=== PATIENT | female | born 1970 | race Hispanic/Latino ===

== ENCOUNTER 2020-04-14 09:58 | Observation (INO) | payer BC, OTHER ==
[2020-04-09 10:52] LABS: BASOPHILS # (AUTO) 0.1 (0.0-0.1); BASOPHILS % 1.2 % (0.0-1.0); EOSINOPHILS # (AUTO) 0.3 (0.0-0.4); EOSINOPHILS % 3.4 % (0.0-6.0); HEMATOCRIT 35.6 % (34.2-44.1); HEMOGLOBIN 11.4 g/dL (12.0-16.0); LYMPHOCYTES # (AUTO) 1.5 (1.0-3.2); LYMPHOCYTES % 18.2 % (18.0-39.1); MEAN CORPUSCULAR HEMOGLOBIN 27.1 pg (28-32); MEAN CORPUSCULAR VOLUME 84.6 fL (81-99); MONOCYTES # (AUTO) 0.7 (0.2-0.8); MONOCYTES % 8.9 % (4.4-11.3); NEUTROPHILS # (AUTO) 5.6 (2.1-6.9); NEUTROPHILS % 67.7 % (38.7-80.0); PLATELET COUNT 366 x10e3/uL (140-360); RED BLOOD COUNT 4.21 x10e6/uL (3.6-5.1); RED CELL DISTRIBUTION WIDTH 14.9 % (11.7-14.4)
[~2020-04-14] VITALS: Ht 165.1 cm; Wt 69.4 kg
[~2020-04-14 09:58] MED LIST: BIRTH CONTROL PO; IBUPROFEN400 MG PO; MOBIC7.5 MG PO; MONTELUKAST SOD10 MG PO; PANTOPRAZOLE SO40 MG PO; ROPIVACAINE 246.25 MG, EPINEPHRINE HCL 1:1000 1ML 0.5 MG, CLONIDINE HCL 0.08 MG, KETORO... INJ ONE
[2020-04-14] MEDS ORDERED: BACITRACIN 50,000 UNIT VIAL ONE (10:19)
[2020-04-14] MEDS ORDERED: SODIUM CHLORIDE 0.9% 500ML 500 ML ONE (10:20)
[2020-04-14] MEDS ORDERED: TRANEXAMIC ACID 1,000 MG/10 ML ML ONE (10:20)
[2020-04-14] MEDS ORDERED: VANCOMYCIN HCL 1,000 MG ONE (10:20)
[2020-04-14] MEDS ORDERED: CELECOXIB 200 MG CAP ONE (10:26)
[2020-04-14] MEDS ORDERED: DEXAMETHASONE SOD PHOS 10 MG/1 ML VIAL ONE (10:26)
[2020-04-14] MEDS ORDERED: CEFAZOLIN SOD 1 GM/NS 50ML 100 ML IV ONE (10:27)
[2020-04-14] MEDS ORDERED: GABAPENTIN 300 MG CAP ONE (10:27)
[2020-04-14] MEDS ORDERED: BUPIVACAINE 7.5MG/ML /DEXTROSE 82.5MG/ML 2 ML AMP INJ ONE (10:43)
[2020-04-14] MEDS ORDERED: DIPHENHYDRAMINE HCL INJ 50 MG/ML VIAL IV PRN (12:30)
[2020-04-14] MEDS ORDERED: ONDANSETRON HCL INJ 2MG/ML 2ML 2 MG/ML VIAL IV PRN (12:30)
[2020-04-14] MEDS ORDERED: KETOROLAC TROMETHAMINE 30 MG/ML VIAL IV PRN (12:30)
[2020-04-14] MEDS ORDERED: ACETAMINOPHEN 650 MG SUPP PR PRN (12:30)
[2020-04-14] MEDS: SODIUM CHLORIDE 0.9% 1000ML 1,000 ML IV SCH ×2 (12:30→22:30)
[2020-04-14] MEDS ORDERED: HYDROCODONE/APAP 7.5MG-325MG 1 EA TAB PO PRN (12:30)
[2020-04-14] MEDS ORDERED: DOCUSATE SODIUM 100 MG CAP PO PRN (12:30)
[2020-04-14] MEDS ORDERED: HYDROCODONE/APAP 5MG-325MG TAB PO PRN (12:30)
--- OUTSIDE RECORDS SUMMARY | 2020-04-14 13:06 | XMS REPORT ---
Author Author Karla Webb [facility] [place] eClinicalWorks Address Unknown Phone Unavailable Care Team Providers Care Makeup Editor Name Role Phone Michelle Webb Unavailable Encounters Encounter Location Date allergies [facility], [facility] March 19, 2014 [facility] 2016 Problems Problem Type Condition ICD-9 Code Onset Dates Condition Statu s Assessment Post Nasal Drip 784.91 Active Problem Other chronic allergic conjunctivitis H10.45 Active Problem Postnasal drip R09.82 Active Problem Other allergic rhinitis J30.89 Acti ve Problem Conjunctivitis-allergic 372.14 Acti ve Problem Post Nasal Drip 784.91 Active Problem Polyp of nasal cavity J33.0 Active Problem Allergic Rhinitis-Perennial 477.8 Active Medications Medication Code System Code Instructions Start Date End Date Status Dosage [facility] [address]-77 50 MCG/ACT Nasally Once a day Active 1 spray in each nostril Social History Social History Element Qualifiers Date Reported 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 . No Apr 19, 2016 Bedroom furniture: . Box spring mattress, Down pillows or comforter Apr 19, 2016 HVAC . Central air and heat Apr 19, 2016 Window coverings in bedroom . Unknown Apr 19, 2016 Home water damage? . No Apr 19, 2016 Age of your home: . 6-10 years Apr 19, 2016 Type of diane in bedroom . Carpet Apr 19, 2016 Hobbies . Watching T.V Apr 19, 2016 Increased allergy sx: animals? . No Apr 19 016 Secondary tobacco exposure? . No Apr 19, 2016 Pets: . dog(s), outside Apr 19, 2016 Are you HIV/Aids positive? . No Apr 19, 2016 Type of fan in bedroom . Ceiling fan or box fan Apr 19 6 Does alcohol cause allergy symptoms? . No Apr 19, 2016 Tobacco Use: . Are you a:: never smoker Apr 19 16 Do you use allergy dust mite protectors . No Apr 19, 2016 Summary Purpose eClinicalWorks Submission
--- OUTSIDE RECORDS SUMMARY | 2020-04-14 13:06 | XMS REPORT ---
Author Author Karla Webb [facility] eClinicalWorks Address Unknown Phone Unavailable Care Team Providers Care Tube And Manifold Builder Name Role Phone Michelle Webb Unavailable Allergies, Adverse Reactions, Alerts Substance Reaction Event Type N.K.D.A. Info Not Available Non Drug Allergy Encounters Encounter [facility] Problems Problem Type Condition ICD-9 Code Onset Dates Condition Statu s Problem Conjunctivitis-allergic 372.14 Acti ve Problem Post Nasal Drip 784.91 Active Problem Allergic Rhinitis-Perennial 477.8 Active Assessment Allergic Rhinitis-Perennial 477.8 Active Assessment Post Nasal Drip 784.91 Active Medications Medication Code System Code Instructions Start Date End Date Status Dosage Fluticasone Propionate [facility] [address]-97 50 MCG/ACT Nasally Once a day Active 1 spray in each nostril [place] Saline Nasal No-Drip [facility] [address]-33 Nasally Sep 18, 2013 Active as directed Social History Social History Element Qualifiers Date Reported 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 . No March 19, 2014 Bedroom furniture: . Box spring mattress, Down pillows or comforter March 19, 2014 HVAC . Central air and heat March 19, 2014 Window coverings in bedroom . Unknown March 19 4 Home water damage? . No March 19, 2014 Age of your home: . 6-10 years March 19, 2014 Type of diane in bedroom . Carpet March 19 4 Hobbies . Watching T.V March 19, 2014 Increased allergy sx: animals? . No March 19, 2014 Secondary tobacco exposure? . No March 19 4 Pets: . dog(s), outside March 19, 2014 Are you HIV/Aids positive? . No March 19, 2014 Type of fan in bedroom . Ceiling fan or box fan March 19 14 Does alcohol cause allergy symptoms? . No Mar Tobacco Use: . Are you a:: never smoker March 19 014 Do you use allergy dust mite protectors . No March 19, 2014 Vital Signs Date/Time: March 19, 2014 Blood Pressure Systolic 123 mm Hg Temperature 97.6 F Height 62.79 in Cardiac Monitoring Heart Rate 72 /min Blood Pressure Diastolic 75 mm Hg Summary Purpose eClinicalWorks Submission
--- OUTSIDE RECORDS SUMMARY | 2020-04-14 13:06 | XMS REPORT ---
Author Author Karla Webb Organization eClinicalWorks Address Unknown Phone Unavailable Care Team Providers Care Supervisor [employer] Name Role Phone Michelle Webb CP Unavailable Allergies, Adverse Reactions, Alerts Substance Reaction Event Type N.K.D.A. Info Not Available Non Drug Allergy Problems Problem Type Condition Code Onset Dates Condition Statu s Problem Other chronic allergic conjunctivitis H10.45 Active Problem Postnasal drip R09.82 Active Problem Other allergic rhinitis J30.89 Acti ve Assessment Other chronic allergic conjunctivitis H10.45 Active Assessment Postnasal drip R09.82 Active Problem Polyp of nasal cavity J33.0 Active Assessment Other allergic rhinitis J30.89 Acti ve Medications Medication Code System Code Instructions Start Date End Date Status Dosage Yes For Women [facility] [address]-48 Externally Active not defined Triamcinolone Acetonide [facility] [address]-75 55 MCG/ACT Nasal ly Once a day Apr 19, 2016 May 03, 2017 Inactive 1 puff in each nostr il [place] Saline Nasal No-Drip [facility] [address]-37 Nasally Sep 18, 2013 Active as directed Montelukast Sodium [facility] [address]-87 10 MG Orally Once a day Apr 19, 2016 Active 1 tablet in the evening Fluticasone Propionate [facility] [address]-11 50 MCG/ACT Nasally On May 03, 2017 Inactive 1 spray in each nostril Vital Signs Date/Time: May 03, 2017 Blood Pressure Diastolic 77 mm Hg Blood Pressure Systolic 120 mm Hg Temperature 98.6 F Height 62.79 in Cardiac Monitoring Heart Rate 69 /min Results No Known Results Summary Purpose eClinicalWorks Submission
--- OUTSIDE RECORDS SUMMARY | 2020-04-14 13:06 | XMS REPORT | Continuity of Care Document ---
Author Author [facility] t Organization [facility] Address [address] [place] [address] Phone Unavailable Care Team Providers Care Healthcare Administrative Assistant Name Role Phone Unavailable Unavailable Payers Payer Name Policy Type Policy Number Effective Date Expiration Date S ource [place]PO POS [id number] 2011 00:00:00 Problems Condition Name Condition Details Condition Category Status Onset Date Resolution Date Last Treatment Date Treating Clinician Comments Source Other chronic allergic conjunctivitis Other chronic allergic conjunctivitis Active Diagnosis 09/09/2019 [facility] Active 2019-09-09 03:46:50 Cullen Vyas Postnasal drip Post nasal drip Active Diagnosis 09/09/2019 [facility] Active 2019-09-09 03:46:50 Cullen Vyas Other allergic rhinitis Othe r allergic rhinitis Active Diagnosis 09/09/2019 [facility] Active 2019-09-09 03:46:50 Cullen Vyas Polyp of nasal cavity Poly p of nasal cavity Active Problem 09/09/2019 [facility] Problem Active 2019-09-09 03 :46:50 Cullen Vyas Acute vaginitis Acut e vaginitis Active Diagnosis 08/03/2017 [facility] Active 2017-08-03 03:46:18 Cullen Vyas Abdominal distension (gaseous) Abdominal distension (gaseous) Active Diagnosis 08/03/2017 [facility] Active 2017-08-03 03:46:18 Cullen Vyas Multiple sclerosis Mult iple sclerosis Active Problem 09/09/2019 [facility] Problem Active 2019-09-09 03:46:50 Cullen Vyas Post Nasal Drip Post Nasal Drip Active Problem 07/18/2016 [facility] Problem Active 2016-07-18 03:46:00 Cullen Vyas Conjunctivitis-allergic Conj unctivitis-allergic Active Problem 07/18/2016 [facility] Problem Active 2016-07-18 03:46:00 [facility] Allergic Rhinitis-Perennial Al lergic Rhinitis-Perennial Active Problem 07/18/2016 [facility] Problem Active 2016-07-18 03:46:00 [facility] Acute upper respiratory infection, unspecified Acute upper respiratory infection, unspecified Active Diagnosis 09/09/2019 [facility] Active 2019-09-09 03:46:50 [facility] Nasal polyp, unspecified Nasa l polyp, unspecified Active Diagnosis 09/09/2019 [facility] Active 2019-09-09 03:46:50 [facility] Other specified disorders of Eustachian tube, right ea r Other specified disorders of Eustachian tube, right ear Active Diagnosis 12/30/2016 [facility] Active 2016-12-30 02:45:48 [facility] Allergies, Adverse Reactions, Alerts Allergy Name Allergy Type Status Severity Reaction(s) Onset Date Inacti ve Date Treating Clinician Comments Source N.LoriA. N.LoriA. Active Info Not Available 2019-08-21 00:00:00 [facility] Social History Social Habit Start Date Stop Date Quantity Comments Source Sex Assigned At MD [place] Occupation/School(grade): 2016-06-28 00:00:00 2016-06-28 00:00:00 [facility] Medications Ordered Medication Name Filled Medication Name Start Date Stop Da te Current Medication? Ordering Clinician Indication Dosage Frequency Signature (SIG) Comments Components Source Omeprazole 2019-09-09 03:46:50 Yes Michelle Webb 1 capsule [facility] Naproxen 2019-09-09 03:46:50 Yes Michelle Webb 1 t ablet as needed [facility] Lamisil 2019-09-09 03:46:50 Yes Michelle Webb 1 ta blet [facility] Meloxicam 2019-09-09 03:46:50 Yes Michelle Webb TAKE 1 TABLET BY MOUTH ONCE DAILY [facility] Xhance 2019-08-21 00:00:00 Yes Michelle Webb 1 spray in each nostril [facility] Levocetirizine Dihydrochloride 2019-08-21 00:00:00 Yes Jason Webb 1 tablet in the evening [facility] Fluticasone Propionate 2018-01-30 00:00:00 Yes Michelle Ospina lls 1 spray in each nostril [facility] Yes For Women 2017-08-01 00:00:00 Yes Michelle Wells not defined [facility] Metronidazole 2017-07-28 00:00:00 Yes Michelle Wells 1 tablet [facility] Asael Yes For Women 2017-05-05 02:45:15 Yes Michelle Wells not defined [facility] Fluticasone Propionate 2017-05-03 00:00:00 Yes Michelel We lls 1 spray in each nostril [facility] Fluticasone Propionate 2016-12-30 02:45:48 Yes Michelle We lls 1 spray in each nostril [facility] Fexofenadine HCl 2016-04-27 00:00:00 Yes Michelle Wells 1 tablet as needed [facility] Triamcinolone Acetonide 2016-04-19 00:00:00 Yes Michelle W ells 1 puff in each nostril [facility] Montelukast Sodium 2016-04-19 00:00:00 Yes Michelle Wells 1 tablet in the evening [facility] Montelukast Sodium 2016-04-19 00:00:00 Yes Michelle Wells 1 tablet in the evening [facility] [place] Saline Nasal No-Drip 2013-09-18 00:00:00 Yes Michelle Wells as directed [facility] [place] Saline Nasal No-Drip 2013-09-18 00:00:00 Yes Michelle Wells as directed [facility] Vital Signs Vital Name Observation Time Observation Value Comments Source Temperature Oral (F) 2019-08-21 15:30:00 97.8 F [facility] Weight 2019-08-21 15:30:00 [facility] Height 2019-08-21 15:30:00 [facility] Heart Rate 2019-08-21 15:30:00 [facility] Diastolic (mm Hg) 2019-08-21 15:30:00 [facility] [place] Systolic (mm Hg) 2019-08-21 15:30:00 [facility] Systolic (mm Hg) 2018-01-30 22:30:00 [facility] Temperature Oral (F) 2018-01-30 22:30:00 99.4 F [facility] Weight 2018-01-30 22:30:00 [facility] Height 2018-01-30 22:30:00 [facility] Heart Rate 2018-01-30 22:30:00 [facility] Diastolic (mm Hg) 2018-01-30 22:30:00 [facility] Diastolic (mm Hg) 2017-08-01 23:30:00 [facility] Systolic (mm Hg) 2017-08-01 23:30:00 Matthew [facility] Temperature Oral (F) 2017-08-01 23:30:00 97.2 F [facility] Height 2017-08-01 23:30:00 [facility] Heart Rate 2017-08-01 23:30:00 [facility] Diastolic (mm Hg) 2017-05-03 22:30:00 [facility] Systolic (mm Hg) 2017-05-03 22:30:00 [facility] [place] Temperature Oral (F) 2017-05-03 22:30:00 98.6 F [facility] Height 2017-05-03 22:30:00 [facility] Heart Rate 2017-05-03 22:30:00 [facility] Diastolic (mm Hg) 2016-12-29 22:15:00 [facility] Systolic (mm Hg) 2016-12-29 22:15:00 [facility] [place] Temperature Oral (F) 2016-12-29 22:15:00 96.8 F [facility] Heart Rate 2016-12-29 22:15:00 [facility] Diastolic (mm Hg) 2016-06-28 23:00:00 [facility] Systolic (mm Hg) 2016-06-28 23:00:00 [facility] [place] Temperature Oral (F) 2016-06-28 23:00:00 98.8 F [facility] Height 2016-06-28 23:00:00 [facility] Heart Rate 2016-06-28 23:00:00 [facility] Systolic (mm Hg) 2016-04-27 23:15:00 [facility] [place] Temperature Oral (F) 2016-04-27 23:15:00 98.6 F [facility] Height 2016-04-27 23:15:00 [facility] Heart Rate 2016-04-27 23:15:00 [facility] Diastolic (mm Hg) 2016-04-27 23:15:00 [facility] [place] Heart Rate 2016-04-19 23:30:00 [facility] Diastolic (mm Hg) 2016-04-19 23:30:00 [facility] [place] Systolic (mm Hg) 2016-04-19 23:30:00 Matthew faisal [place] Height 2016-04-19 23:30:00 [facility] Systolic (mm Hg) 2014-03-19 22:15:00 [facility] [place] Temperature Oral (F) 2014-03-19 22:15:00 97.6 F [facility] Height 2014-03-19 22:15:00 [facility] Heart Rate 2014-03-19 22:15:00 [facility] Diastolic (mm Hg) 2014-03-19 22:15:00 [facility] [place] Procedures This patient has no known procedures. Encounters Start Date/Time End Date/Time [facility] Source 2019-10-03 00:00:00 2019-10-03 23:59:00 Outpatient EL MDA TESSY [id number] MD [place] 2019-08-21 09:30:00 2019-08-21 09:30:00 Outpatient [facility] [id number] eClinicalWorks 2018-01-30 17:30:00 2018-01-30 17:30:00 [facility] [id number] eClinicalWorks 2017-08-01 17:30:00 2017-08-01 17:30:00 [facility] [id number] eClinicalWorks 2017-05-03 17:30:00 2017-05-03 17:30:00 [facility] [id number] eClinicalWorks 2016-12-29 17:15:00 2016-12-29 17:15:00 [facility] [id number] eClinicalWorks 2016-06-28 17:00:00 2016-06-28 17:00:00 Outpatient [facility], [facility] [id number] eClinicalWorks 2016-05-04 17:54:00 2016-05-04 17:54:00 Outpatient [facility], [facility] [id number] eClinicalWorks 2016-05-04 14:30:00 2016-05-04 14:30:00 Outpatient [facility], [facility] [id number] eClinicalWorks 2016-04-27 18:15:00 2016-04-27 18:15:00 Outpatient [facility], [facility] [id number] eClinicalWorks 2016-04-20 15:15:00 2016-04-20 15:15:00 Outpatient [facility], [facility] [id number] eClinicalWorks 2016-04-19 18:30:00 2016-04-19 18:30:00 Outpatient [facility], [facility] [id number] eClinicalWorks 2014-03-19 17:15:00 2014-03-19 17:15:00 [facility], [facility] [id number] [facility] Results This patient has no known results.
--- OUTSIDE RECORDS SUMMARY | 2020-04-14 13:06 | XMS REPORT ---
Author Author Karla Webb Organization eClinicalWorks Address Unknown Phone Unavailable Care Team Providers Care Accounts Receivable Accountant Name Role Phone Michelle Webb CP Unavailable Allergies, Adverse Reactions, Alerts Substance Reaction Event Type N.K.D.A. Info Not Available Non Drug Allergy Problems Problem Type Condition Code Onset Dates Condition Statu s Problem Other allergic rhinitis J30.89 Acti ve Problem Other chronic allergic conjunctivitis H10.45 Active Problem Polyp of nasal cavity J33.0 Active Assessment Acute vaginitis N76.0 Active Assessment Abdominal distension (gaseous) R14.0 Active Problem Postnasal drip R09.82 Active Assessment Other allergic rhinitis J30.89 Acti ve Medications Medication Code System Code Instructions Start Date End Date Status Dosage Yes For Women [facility] 54881083469 Externally Aug 01, 2017 Inac tive not defined Metronidazole ND 03345625806 500 MG Orally every 8 hrs Jul 28, 2017 Active 1 tablet [place] Saline Nasal No-Drip ND 97677699761 Nasally Sep 18, 2013 Aug 01, 2017 Inactive as directed Montelukast Sodium ND 85691637930 10 MG Orally Once a day Apr Active 1 tablet in the evening Omeprazole ND 59327563418 40 MG Orally Once a day A ctive 1 capsule Naproxen [facility] 33277446567 500 MG Orally every 12 hrs Active 1 tablet as needed Vital Signs Date/Time: Aug 01, 2017 Blood Pressure Diastolic 77 mm Hg Blood Pressure Systolic 130 mm Hg Temperature 97.2 F Height 61 in Cardiac Monitoring Heart Rate 68 /min Results No Known Results Summary Purpose eClinicalWorks Submission
--- OUTSIDE RECORDS SUMMARY | 2020-04-14 13:06 | XMS REPORT ---
Author Author Karla Webb Organization eClinicalWorks Address Unknown Phone Unavailable Care Team Providers Care Dietetics Professor Name Role Phone Michelle Webb CP Unavailable Allergies, Adverse Reactions, Alerts Substance Reaction Event Type N.K.D.A. Info Not Available Non Drug Allergy Problems Problem Type Condition Code Onset Dates Condition Statu s Assessment Other chronic allergic conjunctivitis H10.45 Active Assessment Multiple sclerosis G35 Active Problem Polyp of nasal cavity J33.0 Active Problem Other allergic rhinitis J30.89 Acti ve Problem Multiple sclerosis G35 Active Assessment Other allergic rhinitis J30.89 Acti ve Assessment Postnasal drip R09.82 Active Problem Other chronic allergic conjunctivitis H10.45 Active Problem Postnasal drip R09.82 Active Medications Medication Code System Code Instructions Start Date End Date Status Dosage Lamisil ND 12454251329 250 MG Orally Once a day Act jacquelin 1 tablet Metronidazole ND 41391956209 500 MG Orally every 8 hrs JulJanuary 30, 2018 Inactive 1 tablet Naproxen ND 78145248143 500 MG Orally every 12 hrs Active 1 tablet as needed Omeprazole ND 58003615627 40 MG Orally Once a day A ctive 1 capsule Fluticasone Propionate ND 96061307464 50 MCG/ACT Nasally Once a day January 30, 2018 Active 1 spray in each nost ril Montelukast Sodium ND 10988099527 10 MG Orally Once a day Apr Active 1 tablet in the evening Vital Signs Date/Time: January 30, 2018 Blood Pressure Systolic 132 mm Hg Temperature 99.4 F Weight-kg 152 lbs Height 62 in Cardiac Monitoring Heart Rate 60 /min Blood Pressure Diastolic 84 mm Hg Results No Known Results Summary Purpose eClinicalWorks Submission
--- OUTSIDE RECORDS SUMMARY | 2020-04-14 13:06 | XMS REPORT ---
Author Author Karla Webb [facility] eClinicalWorks Address Unknown Phone Unavailable Care Team Providers Care Engineer Systems Name Role Phone Michelle Webb Unavailable Encounters Encounter Location Date IT READY [facility], [facility] May 04, 2016 allergies [facility], [facility] May 04, 2016 allergies [facility], [facility] March 19, 2014 Prescription [facility], [facility] Apr 20, 2016 allergies [facility] Apr 19, 2016 Problems Problem Type Condition ICD-9 Code Onset Dates Condition Statu s Assessment Other allergic rhinitis J30.89 Acti ve Problem Other chronic allergic conjunctivitis H10.45 Active Problem Postnasal drip R09.82 Active Problem Other allergic rhinitis J30.89 Acti ve Problem Conjunctivitis-allergic 372.14 Acti ve Problem Post Nasal Drip 784.91 Active Problem Polyp of nasal cavity J33.0 Active Problem Allergic Rhinitis-Perennial 477.8 Active Medications Medication Code System Code Instructions Start Date End Date Status Dosage [place] Saline [facility]al [facility]rip [facility] [address]-95 Nasally Sep 18, 2013 Active as directed Fluticasone Propionate [facility] [address]-92 50 MCG/ACT Nasally Once a day Active 1 spray in each nostril Yes For Women [facility] [address]-90 Externally Active Unknown F[facility]enadine HCl [facility] [address]-67 180 MG Orally Once a day Au 2015Sep 24, 2016 Active 1 tablet as needed Triamcinolone Acetonide [facility] [address]-74 55 MCG/ACT Nasal ly Once a day Apr 19, 2016 Active 1 puff in each nostr il Montelukast Sodium [facility] [address]-44 10 MG Orally Once a day A ug 2015 Active 1 tablet in the evening Social History Social History Element Qualifiers Date Reported 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 . No Apr 30, 2016 Bedroom furniture: . Box spring mattress, Down pillows or comforter Apr 30, 2016 HVAC . Central air and heat Apr 30, 2016 Window coverings in bedroom . Unknown Apr 30, 2016 Home water damage? . No Apr 30, 2016 Age of your home: . 6-10 years Apr 30, 2016 Type of diane in bedroom . Carpet Apr 30, 2016 Hobbies . Watching T.V Apr 30, 2016 Increased allergy sx: animals? . No Apr 30 016 Secondary tobacco exposure? . No Apr 30, 2016 Pets: . dog(s), outside Apr 30, 2016 Are you HIV/Aids positive? . No Apr 30, 2016 Type of fan in bedroom . Ceiling fan or box fan Apr 30 6 Does alcohol cause allergy symptoms? . No Apr 30, 2016 Tobacco Use: . Are you a:: never smoker Apr 30 16 Do you use allergy dust mite protectors . No Apr 30, 2016 Summary Purpose eClinicalWorks Submission
--- OUTSIDE RECORDS SUMMARY | 2020-04-14 13:06 | XMS REPORT ---
Author Author Karla Webb [facility] eClinicalWorks Address Unknown Phone Unavailable Care Team Providers Care Soda Fountain Operator Name Role Phone Michelle Webb Unavailable Allergies, Adverse Reactions, Alerts Substance Reaction Event Type N.K.D.A. Info Not Available Non Drug Allergy Encounters Encounter Location Date allergies [facility], [facility] March 19, 2014 Prescription [facility], [facility] Apr 20, 2016 allergies [facility], [facility] Apr 19, 2016 Problems Problem Type Condition ICD-9 Code Onset Dates Condition Statu s Assessment Postnasal drip R09.82 Active Assessment Other allergic rhinitis J30.89 Acti ve Assessment Other chronic allergic conjunctivitis H10.45 Active Assessment Polyp of nasal cavity J33.0 Active Problem Other chronic allergic conjunctivitis H10.45 Active Problem Postnasal drip R09.82 Active Problem Other allergic rhinitis J30.89 Acti ve Problem Conjunctivitis-allergic 372.14 Acti ve Problem Post Nasal Drip 784.91 Active Problem Polyp of nasal cavity J33.0 Active Problem Allergic Rhinitis-Perennial 477.8 Active Medications Medication Code System Code Instructions Start Date End Date Status Dosage Yes For Women [facility] [address]-24 Externally Active Unknown Triamcinolone Acetonide [facility] [address]-37 55 MCG/ACT Nasal ly Once a day Apr 19, 2016 Active 1 puff in each nostr il Fluticasone Propionate [facility] [address]-02 50 MCG/ACT Nasally Once a day Active 1 spray in each nostril [place] Saline Nasal No-Drip [facility] [address]-79 Nasally Sep 18, 2013 Active as directed Montelukast Sodium [facility] [address]-04 10 MG Orally Once a day A 2015 Active 1 tablet in the evening [...] mite protectors . No Apr 19, 2016 Vital Signs Date/Time: Apr 19, 2016 Cardiac Monitoring Heart Rate 63 /min Blood Pressure Diastolic 92 mm Hg Blood Pressure Systolic 143 mm Hg Height 62.79 in Summary Purpose eClinicalWorks Submission
--- OUTSIDE RECORDS SUMMARY | 2020-04-14 13:06 | XMS REPORT ---
Author Author Karla Webb [facility] eClinicalWorks Address Unknown Phone Unavailable Care Team Providers Care Machinist 2Nd Shift Name Role Phone Michelle Webb Unavailable Encounters Encounter Location Date IT READY [facility], [facility] May 04, 2016 allergies [facility], [facility] March 19, 2014 Prescription [facility], [facility] Apr 20, 2016 allergies [facility], [facility] Apr 19, 2016 Problems Problem Type Condition ICD-9 Code Onset Dates Condition Statu s Problem Other chronic allergic conjunctivitis H10.45 Active Problem Postnasal drip R09.82 Active Problem Other allergic rhinitis J30.89 Acti ve Problem Conjunctivitis-allergic 372.14 Acti ve Problem Post Nasal Drip 784.91 Active Problem Polyp of nasal cavity J33.0 Active Problem Allergic Rhinitis-Perennial 477.8 Active Social History Social History Element Qualifiers Date [...]
--- OUTSIDE RECORDS SUMMARY | 2020-04-14 13:06 | XMS REPORT ---
Author Author Karla Webb eClinicalWorks Address Unknown Phone Unavailable Care Team Providers Care Material Manager Name Role Phone Michelle Webb CP Unavailable Allergies, Adverse Reactions, Alerts Substance Reaction Event Type N.K.D.A. Info Not Available Non Drug Allergy Problems Problem Type Condition Code Onset Dates Condition Statu s Assessment Other chronic allergic conjunctivitis H10.45 Active Assessment Other allergic rhinitis J30.89 Acti ve Assessment Acute upper respiratory infection, unspecified J06.9 Active Assessment Postnasal drip R09.82 Active Assessment Nasal polyp, unspecified J33.9 Act jacquelin Problem Multiple sclerosis G35 Active Problem Polyp of nasal cavity J33.0 Active Problem Nasal polyp, unspecified J33.9 Act jacquelin Problem Postnasal drip R09.82 Active Problem Other allergic rhinitis J30.89 Acti ve Problem Other chronic allergic conjunctivitis H10.45 Active Medications Medication Code System Code Instructions Start Date End Date Status Dosage Xhance [facility] 32662295470 93 MCG/ACT Nasally Twice a day Aug 21, 2019 Active 1 spray in each nostril Meloxicam [facility] 70792572142 7.5 MG Oral Active TAKE 1 TABLET BY MOUTH ONCE DAILY Levocetirizine Dihydrochloride ND 16802218800 5 MG Orall y Once a day Aug 21, 2019 January 18, 2020 Active 1 tablet in the even ing Naproxen ND 47970715973 500 MG Orally every 12 hrs Active 1 tablet as needed Fluticasone Propionate ND 38770003634 50 MCG/ACT Nasally Once a day January 30, 2018 Inactive 1 spray in each nost ril Lamisil ND 72946349701 250 MG Orally Once a day Act jacquelin 1 tablet Omeprazole [facility] 38932465693 40 MG Orally Once a day A ctive 1 capsule Montelukast Sodium [facility] 69123087638 10 MG Orally Once a day Apr Active 1 tablet in the evening Vital Signs Date/Time: Aug 21, 2019 Temperature 97.8 F Weight-kg 151 lbs Height 61 in Cardiac Monitoring Heart Rate 77 /min Blood Pressure Diastolic 87 mm Hg Blood Pressure Systolic 134 mm Hg BMI 28.57 Index Results No Known Results Summary Purpose eClinicalWorks Submission
--- OUTSIDE RECORDS SUMMARY | 2020-04-14 13:06 | XMS REPORT ---
Author Author Karla Webb [facility] eClinicalWorks Address Unknown Phone Unavailable Care Team Providers Care Supervisor Gear Repair Name Role Phone Michelle Webb Unavailable Allergies, Adverse Reactions, Alerts Substance Reaction Event Type N.K.D.A. Info Not Available Non Drug Allergy Encounters Encounter Location Date IT READY [facility], [facility] May 04, 2016 allergies [facility], [facility] May 04, 2016 allergies [facility], [facility] Apr 27, 2016 allergies [facility] March 19, 2014 Prescription [facility], [facility] Apr 20, 2016 allergies [facility], [facility] Apr 19, 2016 Problems Problem Type Condition [...] End Date Status Dosage Yes For Women [facility] [address]-82 Externally Active Unknown Triamcinolone Acetonide [facility] [address]-20 55 MCG/ACT Nasal ly Once a day Apr 19, 2016 Active 1 puff in each nostr il Montelukast Sodium [facility] [address]-14 10 MG Orally Once a day A ug 2015 Active 1 tablet in the evening Fexofenadine HCl [facility] [address]-54 180 MG Orally Once a day Au g 2015Sep 24, 2016 Active 1 tablet as needed [place] Saline Nasal No-Drip [facility] [address]-69 Nasally Sep 18, 2013 Active as directed Fl[facility]icasone Prop[facility] [address]-46 50 MCG/ACT Nasally Once a day Active [...] mite protectors . No Apr 30, 2016 Vital Signs Date/Time: Apr 27, 2016 Blood Pressure Systolic 124 mm Hg Temperature 98.6 F Height 62.79 in Cardiac Monitoring Heart Rate 73 /min Blood Pressure Diastolic 79 mm Hg Summary Purpose eClinicalWorks Submission
--- OUTSIDE RECORDS SUMMARY | 2020-04-14 13:06 | XMS REPORT ---
Author Author Karla Webb Organization eClinicalWorks Address Unknown Phone Unavailable Care Team Providers Care Cleaner Touch Up Worker Name Role Phone Michelle Webb CP Unavailable Allergies, Adverse Reactions, Alerts Substance Reaction Event Type N.K.D.A. Info Not Available Non Drug Allergy Problems Problem Type Condition Code Onset Dates Condition Statu s Problem Other chronic allergic conjunctivitis H10.45 Active Problem Postnasal drip R09.82 Active Problem Other allergic rhinitis J30.89 Acti ve Assessment Postnasal drip R09.82 Active Assessment Other specified disorders of Eustachian tube, right ea r H69.81 Active Problem Polyp of nasal cavity J33.0 Active Assessment Other allergic rhinitis J30.89 Acti ve Medications Medication Code System Code Instructions Start Date End Date Status Dosage Triamcinolone Acetonide [facility] [address]-12 55 MCG/ACT Nasal ly Once a day Apr 19, 2016 Active 1 puff in each nostr il [place] Saline Nasal No-Drip [facility] [address]-73 Nasally Sep 18, 2013 Active as directed Fluticasone Propionate [facility] [address]-80 50 MCG/ACT Nasally Once a day Active 1 spray in each nostril Montelukast Sodium [facility] [address]-53 10 MG Orally Once a day Apr 19, 2016 Active 1 tablet in the evening Yes For Women [facility] [address]-06 Externally Active not defined Vital Signs Date/Time: December 29, 2016 Blood Pressure Diastolic 79 mm Hg Blood Pressure Systolic 129 mm Hg Temperature 96.8 F Cardiac Monitoring Heart Rate 79 /min Results No Known Results Summary Purpose eClinicalWorks Submission
--- OUTSIDE RECORDS SUMMARY | 2020-04-14 13:06 | XMS REPORT ---
Author Author Karla Webb [facility] eClinicalWorks Address Unknown Phone Unavailable Care Team Providers Care Client Application Support Specialist Name Role Phone Michelle Webb Unavailable Allergies, Adverse Reactions, Alerts Substance Reaction Event Type N.K.D.A. Info Not Available Non Drug Allergy Encounters Encounter Location Date IT READY [facility], [facility] May 04, 2016 allergies [facility], [facility] May 04, 2016 allergies [facility], [facility] Apr 27, 2016 allergies [facility], [facility] Jun 28, 2016 allergies [facility], [facility] March 19, 2014 Prescription [facility], [facility] Apr 20, 2016 allergies [facility], [facility] Apr 19, 2016 Problems Problem Type Condition ICD-9 Code Onset Dates Condition Statu s Assessment Postnasal drip R09.82 Active Assessment Other allergic rhinitis J30.89 Acti ve Assessment Other chronic allergic conjunctivitis H10.45 Active Problem Other chronic allergic conjunctivitis H10.45 Active Problem Postnasal drip R09.82 Active Problem Other allergic rhinitis J30.89 Acti ve Problem Conjunctivitis-allergic 372.14 Acti ve Problem Post Nasal Drip 784.91 Active Problem Polyp of nasal cavity J33.0 Active Problem Allergic Rhinitis-Perennial 477.8 Active Medications Medication Code System Code Instructions Start Date End Date Status Dosage Fexofenadine HCl [facility] [address]-09 180 MG Orally Once a day Au g 2015Sep 24, 2016 Active 1 tablet as needed Montelukast Sodium [facility] [address]-11 10 MG Orally Once a day A ug 2015 Active 1 tablet in the evening [place] Saline Nasal No-Drip [facility] [address]-49 Nasally Sep 18, 2013 Active as directed Yes For Women [facility] [address]-06 Externally Active Unknown [facility]am[facility] Aceton[facility] [address]-64 55 MCG/ACT Nasal ly Once a day Apr 19, 2016 Active 1 puff in each nostr il Fluticasone Propionate [facility] [address]-31 50 MCG/ACT Nasally Once a day Active 1 spray in each nostril Social History Social History Element Qualifiers Date Reported 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 . No Jun 28, 2016 Bedroom furniture: . Box spring mattress, Down pillows or comforter Jun 28, 2016 HVAC . Central air and heat Jun 28, 2016 Window coverings in bedroom . Unknown Jun 28, 2016 Home water damage? . No Jun 28, 2016 Age of your home: . 6-10 years Jun 28, 2016 Type of diane in bedroom . Carpet Jun 28, 2016 Hobbies . Watching T.V Jun 28, 2016 Increased allergy sx: animals? . No Jun 28 016 Secondary tobacco exposure? . No Jun 28, 2016 Pets: . dog(s), outside Jun 28, 2016 Are you HIV/Aids positive? . No Jun 28, 2016 Type of fan in bedroom . Ceiling fan or box fan Jun 28 6 Does alcohol cause allergy symptoms? . No Jun 28, 2016 Tobacco Use: . Are you a:: never smoker Jun 28 16 Do you use allergy dust mite protectors . No Jun 28, 2016 Vital Signs Date/Time: Jun 28, 2016 Blood Pressure Diastolic 77 mm Hg Blood Pressure Systolic 132 mm Hg Temperature 98.8 F Height 62.79 in Cardiac Monitoring Heart Rate 72 /min Summary Purpose eClinicalWorks Submission
--- OUTSIDE RECORDS SUMMARY | 2020-04-14 13:06 | XMS REPORT | Continuity of Care Document ---
Author Author MD.VoiceSTANLEY [facility] Information [employer] Address Unknown Phone Unavailable Care Team Providers Care Channel Lip Wetter Name Role Phone [facility] Information [facility] Unavailable Un available Problems Problem Status Onset Date Classification Date Reported Comments Source Other chronic allergic conjunctivitis Active Diagnosis 09/09/2019 [facility] Postnasal drip Active Diagnosis 09/09/2019 [facility] Other allergic rhinitis Active Diagnosis 09/09/2019 [facility] Polyp of nasal cavity Active Problem 09/09/2019 [facility] Acute vaginitis Active Diagnosis 08/03/2017 [facility] Abdominal distension (gaseous) Active Diagnosis 1 10/03/2016 [facility] Multiple sclerosis Active Problem 09/09/2019 [facility] Post Nasal Drip Active Problem 07/18/2016 [facility] Conjunctivitis-allergic Active Problem 07/18/2016 [facility] Allergic Rhinitis-Perennial Ac tive Problem 03/2016 [facility] Acute upper respiratory infection, unspecified Active Diagnosis 09/09/2019 [facility] Nasal polyp, unspecified Active Diagnosis 09/09/2019 [facility] Other specified disorders of Eustachian tube, right ea r Active Diagnosis 12/30/2016 [facility] Medications Medication Details Route Status Patient Instructions Ordering Provider Order Date Source Xhance 1 spray in each nostril Nasally Active 93 MCG/ACT Nasally Twice a day [facility] 08/21/2019 [facility] Levocetirizine Dihydrochloride 1 tablet in the evening Orally Active 5 MG Orally Once a day [facility] 08/21/2019 [facility] Fluticasone Propionate 1 spray in each nostril Nasally Active 50 MCG/ACT Nasally Once a day [facility] 01/30/2018 [facility] Yes For Women not defined Externally Active Externally [facility] 08/01/2017 [facility] Metronidazole 1 tablet Orally Active 500 MG Orally every 8 h rs [facility] 07/28/2017 [facility] Fluticasone Propionate 1 spray in each nostril Nasally Active 50 MCG/ACT Nasally Once a day [facility] 05/03/2017 [facility] Fexofenadine HCl 1 tablet as n eeded Orally Active 180 MG Orally Once a day [facility] 04/27/2016 [facility] Triamcinolone Acetonide 1 puff in each nostril Nasally Active 55 MCG/ACT Nasally Once a day [facility] 04/19/2016 [facility] Montelukast Sodium 1 tablet in the evening Orally Active 10 MG Orally Once a day [place] 04/19/2016 [facility] Montelukast Sodium 1 tablet in the evening Orally Active 10 MG Orally Once a day [place] 04/19/2016 [facility] [place] Saline Nasal No-Drip as di rected Nasally Active Nasally [place] 09/18/2013 [facility] [place] Saline Nasal No-Drip as di rected Nasally Active Nasally [facility] 09/18/2013 [facility] Yes For Women not defined Externally Active Externally [facility] Omeprazole 1 capsule Orally Active 40 MG Orally Once a day [facility] Naproxen 1 tablet as needed Orally Active 500 MG Orally every 12 hrs [facility] Lamisil 1 tablet Orally Active 250 MG Orally Once a da y [facility] Fluticasone Propionate 1 spray in each nostril Nasally Active 50 MCG/ACT Nasally Once a day [facility] Meloxicam TAKE 1 TABLET BY CHAI TH ONCE DAILY Oral Active 7.5 MG Oral [facility] Allergies, Adverse Reactions, Alerts Substance Category Reaction Severity Reaction type Status Date Reported Comments Source N.K.D.A. Adverse Reaction Info Not Available Adverse Reaction 08/21/2019 [facility] Immunizations No Data Provided for This Section Results No Data Provided for This Section Pathology Reports No Data Provided for This Section Diagnostic Reports No Data Provided for This Section Consultation Notes No Data Provided for This Section Discharge Summaries No Data Provided for This Section History and Physicals No Data Provided for This Section Vital Signs Vital Sign Value Date Comments Source Temperature Oral (F) 97.8 F 08/21/2019 [facility] Weight 151 08/21/2019 [facility] Height 61 1 10/22/2018 [facility] Heart Rate 77 08/21/2019 [facility] Diastolic (mm Hg) 87 08/21/2019 [facility] Systolic (mm Hg) 134 08/21/2019 [facility] Systolic (mm Hg) 132 01/30/2018 [facility] Temperature Oral (F) 99.4 F 01/30/2018 [facility] Weight 152 01/30/2018 [facility] Height 62 0 01/30/2018 [facility] Heart Rate 60 01/30/2018 [facility] Diastolic (mm Hg) 84 01/30/2018 [facility] Diastolic (mm Hg) 77 08/01/2017 [facility] Systolic (mm Hg) 130 08/01/2017 [facility] Temperature Oral (F) 97.2 F 08/01/2017 [facility] Height 61 1 10/01/2016 [facility] Heart Rate 68 08/01/2017 [facility] Diastolic (mm Hg) 77 05/03/2017 [facility] Systolic (mm Hg) 120 05/03/2017 [facility] Temperature Oral (F) 98.6 F 05/03/2017 [facility] Height 62.79 05/03/2017 [facility] Heart Rate 69 05/03/2017 [facility] Diastolic (mm Hg) 79 12/29/2016 [facility] Systolic (mm Hg) 129 12/29/2016 [facility] Temperature Oral (F) 96.8 F 12/29/2016 [facility] Heart Rate 79 12/29/2016 [facility] Diastolic (mm Hg) 77 06/28/2016 [facility] Systolic (mm Hg) 132 06/28/2016 [facility] Temperature Oral (F) 98.8 F 06/28/2016 [facility] Height 62.79 06/28/2016 [facility] Heart Rate 72 06/28/2016 [facility] Systolic (mm Hg) 124 04/27/2016 [facility] Temperature Oral (F) 98.6 F 04/27/2016 [facility] Height 62.79 04/27/2016 [facility] Heart Rate 73 04/27/2016 [facility] Diastolic (mm Hg) 79 04/27/2016 [facility] Heart Rate 63 04/19/2016 [facility] Diastolic (mm Hg) 92 04/19/2016 [facility] Systolic (mm Hg) 143 04/19/2016 [facility] Height 62.79 04/19/2016 [facility] Systolic (mm Hg) 123 03/19/2014 [facility] Temperature Oral (F) 97.6 F 03/19/2014 [facility] Height 62.79 03/19/2014 [facility] Heart Rate 72 03/19/2014 [facility] Diastolic (mm Hg) 75 03/19/2014 [facility] Encounters Location Location Details Encounter Type Encounter Number Reason For Visit Attending Provider ADM Date DC Date Status Source [facility], [facility] allergies [id number] 03/19/2014 03/19/2014 [facility] allergies [id number] 03/19/2014 03/19/2014 [facility] allergies [id number] 03/19/2014 03/19/2014 [facility] allergies [id number] 03/19/2014 03/19/2014 [facility] allergies [id number] 03/19/2014 03/19/2014 [facility] allergies [id number] 03/19/2014 03/19/2014 [facility] allergies [id number] 03/19/2014 03/19/2014 [facility] allergies [id number] 04/19/2016 04/19/2016 [facility] allergies [id number] 04/19/2016 04/19/2016 [facility] allergies [id number] 04/19/2016 04/19/2016 [facility] allergies [id number] 04/19/2016 04/19/2016 [facility] allergies [id number] 04/20/2016 04/20/2016 [facility] Prescription [id number] 04/20/2016 04/20/2016 [facility] Prescription [id number] 04/20/2016 04/20/2016 [facility] Prescription [id number] 04/20/2016 04/20/2016 [facility] Prescription [id number] 04/20/2016 04/20/2016 [facility] Prescription [id number] 04/20/2016 04/20/2016 [facility] Prescription [id number] 04/20/2016 04/20/2016 [facility] allergies [id number] 04/27/2016 04/27/2016 [facility] allergies [id number] 04/28/2016 04/28/2016 [facility] allergies [id number] 05/04/2016 05/04/2016 [facility] allergies [id number] 05/04/2016 05/04/2016 [facility] allergies [id number] 05/04/2016 05/04/2016 [facility] IT READY [id number] 05/04/2016 05/04/2016 [facility] [id number] 05/04/2016 05/04/2016 [facility] [id number] 05/04/2016 05/04/2016 [facility] [id number] 05/04/2016 05/04/2016 [facility] allergies [id number] 06/28/2016 06/28/2016 [facility] Procedures No Data Provided for This Section Assessment and Plan No Data Provided for This Section Plan of Care No Data Provided for This Section Social History Social History Date Source Social History ElementQualifiersDate Rep orted 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 . No Jun 28, 2016 Secondary tobacco exposure? . No Jun 28, 2016 Pets: . dog(s), outside Jun 28, 2016 Are you HIV/Aids positive? . No Jun 28, 2016 Type of fan in bedroom . Ceiling fan or box fan Jun 28, 2016 Does alcohol cause allergy symptoms? . No Jun 28, 2016 Tobacco Use: . Are you a:: never smoker Jun 28, 2016 Do you use allergy dust mite protectors . No Jun 28, 2016 06/28/2016 [facility] Family History No Data Provided for This Section Advance Directives No Data Provided for This Section Functional Status No Data Provided for This Section
[2020-04-14 13:45] VITALS: BP 100/54
[2020-04-14 13:54] VITALS: BP 100/54
[2020-04-14] MEDS ORDERED: ACETAMINOPHEN 1000 MG/100 ML IV PRN (14:00)
--- NOTE | 2020-04-14 14:04 | Diagnostic Imaging Report ---
X-ray hips Comparison: None. History: Postop right hip Findings: Status post right hip total arthroplasty with orthopedic hardware in place and in near-anatomic alignment. Soft tissue swelling and air suggestive of the recent surgery. Impression: As above. Signed by: Renny Mo MD on 04/14/2020 2:00 PM
--- NOTE | 2020-04-14 14:07 | NUR ---
DR AGUILLON OFFICE PREARRANGED FOLLOWING DISCHARGE PLAN OF: [id number] [place] [address]; [phone] HOME HEALTH WITH [facility] CONFIRMED WITH Mouna [phone] BRE 3 IN ONE COMMODE AND ROLLING WALKER WITH WHEELS. PROVIDED BY [facility] [phone]
--- NOTE | 2020-04-14 14:16 | NUR ---
ASSUMED CARE. PATIENT ARRIVED TO UNIT AT APPROXIMATELY 1335. AAOX3. ACYANOTIC. NO DISTRESS NOTED. RESTING IN BED WATCHING TELEVISION. RIGHT HAND IV PATENT AND NOW SALINE LOCKED. PATIENT DENIES PAIN. SURGICAL DRESSING NOTED TO RIGHT HIP. NO ACTIVE BLEEDING NOTED. CALL LIGHT IN REACH. SIDE RAILS UP X2. BED LOW AND LOCKED. INSTRUCTED PATIENT TO CALL FOR ASSISTANCE. VERBALIZED UNDERSTANDING.
[2020-04-14] MEDS ORDERED: ONDANSETRON HCL INJ 2MG/ML 2ML 2 MG/ML VIAL ONE (14:39)
[2020-04-14 16:19] VITALS: BP 111/68
[2020-04-14] MEDS: CELECOXIB 100 MG CAP PO SCH (17:07)
[2020-04-14] MEDS: ASPIRIN 325 MG TAB PO SCH (17:07)
--- NOTE | 2020-04-14 17:15 | NUR ---
AAOX3. ACYANOTIC. PATIENT RESTING IN BED AND CURRENTLY SALINE LOCKED AFTER TOLERATING PO FLUIDS. SIDE RAILS UP X2. BED LOW AND LOCKED. PAIN MEDICATION ADMINISTERED PER ORDER FOR REPORTED PAIN.
--- NOTE | 2020-04-14 18:49 | Operative Report ---
DATE OF PROCEDURE: 04/14/2020 SURGEON: Jose L Calderon MD MANAGER AGRICULTURE: Kenrick Justin, certified PA. PREOPERATIVE DIAGNOSIS: Osteoarthritis right hip. POSTOPERATIVE DIAGNOSIS: Osteoarthritis right hip. PROCEDURE: Right total hip arthroplasty. INDICATIONS: The patient is a 49-year-old lady, who has advanced osteoarthritis of her right hip. She has failed conservative management and would like to proceed with a right total hip replacement. The risks and benefits of the procedure have been discussed. All of her questions have been answered. She states she understands and wishes to proceed. DESCRIPTION OF PROCEDURE: The patient was brought to the operating room and given a spinal anesthetic. She received prophylactic antibiotics and tranexamic acid in the holding area. She was positioned in the left lateral decubitus position. Her right hip was prepped and draped in a sterile manner. A preoperative time-out was performed. A posterior approach was made to the right hip. Abundant and dense subcutaneous adipose tissue was encountered. Hemostasis was obtained with electrocautery. The deep fascia was incised. A deep self-retaining Charnley retractor was placed. The posterior capsule was carefully exposed. Further hemostasis was obtained with electrocautery. The posterior capsule and a portion of the short external rotators were released. The hip was dislocated. An oscillating saw was used to resect the femoral head. Complete loss of articular cartilage in the weightbearing surface of the femoral head was noted. Acetabular retractors were carefully placed. A bone inflammation in the hip joint was encountered. This was excised using electrocautery. A long-handle knife was used to remove the labral remnant. Acetabular reamers were placed. The socket was sequentially reamed up to 53 mm. The hip was thoroughly irrigated on several occasions with a shower tip pulsatile lavage. A [employer] 54 mm outer diameter OsseoTi socket was then impacted into place. Fixation was augmented with two screws placed into the ilium. A highly cross-linked polyethylene liner was then seated into place. Care was taken to make sure that there was no evidence of soft tissue. A portion of a premixed pericapsular ALICIA injection was placed into the surrounding soft tissue. The socket was packed with a moistly soaked lap sponge. Attention was directed towards the proximal femur. A box cutting osteotome and taper pin reamer were used to establish entry to the femoral canal. The [employer] taper lock broaches were impacted. A size #9 stem had good canal fill and stability for trial reduction. A standard 36 mm head appeared to provide appropriate baptism of limb length and excellent stability through a full arc of motion. The trial implants were removed. The hip was further irrigated with a shower tip pulsatile lavage. The implants were seated. The head was placed onto the stem once it was clean and dry. A final reduction was performed. The posterior capsule was repaired with #2 Ethibond. The short external rotators were reapproximated with #2 Ethibond. The hip was further irrigated. A 500 mg of vancomycin powder was then sprinkled into the deep wound. The fascia was closed with interrupted #2 Ethibond. The skin was closed with subcuticular Vicryl, Mastisol, and Steri-Strips. A sterile bandage was applied. Estimated blood loss was approximately 100 mL. All needle and sponge counts were correct. Jose L Calderon MD DR/GEORGETTE /[id number]
[2020-04-14 20:00] VITALS: BP 111/68
[2020-04-14 20:32] VITALS: BP 111/61
[2020-04-14] MEDS: CEFAZOLIN SOD 1 GM/NS 50ML 50 ML IV SCH (20:42)
[2020-04-14] MEDS ORDERED: ZOLPIDEM TARTRATE 5 MG TAB PO PRN (21:00)
[2020-04-15 00:08] VITALS: BP 93/53
--- NOTE | 2020-04-15 03:45 | NUR ---
Patient reporting unable to urinate. Bladder scanned at greater than "999+", allegra-area cleaned with soap and water, area cleaned with Betadine and 16 F hough placed with sterile technique, 1625ML of clear yellow urine to bedside bag. Tolerated well.
[2020-04-15] MEDS: CEFAZOLIN SOD 1 GM/NS 50ML 50 ML IV SCH ×2 (04:13→11:56)
--- NOTE | 2020-04-15 05:27 | Consultation ---
DATE OF CONSULTATION: REASON FOR CONSULTATION: Postop medical management. HISTORY OF PRESENT ILLNESS: The patient is a 49-year-old lady, who is status post total right hip arthroplasty for end-stage osteoarthritis. She is doing well postoperatively and complains of minimal pain. Denies any fever, chills, nausea, vomiting, headache, shortness of breath, or dizziness. PAST MEDICAL HISTORY: Significant for allergies and osteoarthritis. MEDICATIONS: See MAR. ALLERGIES: NONE. SOCIAL HISTORY: Nondrinker, nonsmoker. . Works full-time. FAMILY HISTORY: Hypertension. PHYSICAL EXAMINATION: VITAL SIGNS: Temperature 97.9, blood pressure 93/53, pulse 56, sats 99% on room air. GENERAL: She is in no apparent distress, lying in bed. NECK: Supple. No lymphadenopathy. CARDIOVASCULAR: Regular rate and rhythm. LUNGS: Clear to auscultation bilaterally. ABDOMEN: Good bowel sounds. Soft and nontender. EXTREMITIES: No clubbing or cyanosis. NEUROLOGIC: Nonfocal. ASSESSMENT AND PLAN: 1. Right hip pain. We will continue with postoperative care and pain control. 2. Hypertension. The patient is asymptomatic, so we will continue to monitor. 3. Anemia check a CBC. 4. Urinary retention. The patient did have evidence of urinary retention with Taveras placement of approximately 1600 mL resolved. So, we will continue to monitor for right now, would be able to discontinue the Taveras catheter later today. Please see hospital chart for full details. MD FABIEN Cordero/GEORGETTE /[id number]
[2020-04-15 06:00] LABS: HEMATOCRIT 29.3 % (34.2-44.1); HEMOGLOBIN 9.5 g/dL (12.0-16.0)
[2020-04-15 06:01] VITALS: BP 99/41
--- NOTE | 2020-04-15 07:15 | NUR ---
Bedside report and rounding completed with oncoming nurse. Patient in bed with call light within reach. No issues or concerns note.
[2020-04-15 07:35] VITALS: BP 100/54
[2020-04-15 08:09] VITALS: BP 100/54
[2020-04-15] MEDS ORDERED: ONDANSETRON HCL 4 MG ORAL DISINTEGRATING TAB PO PRN (08:45)
[2020-04-15] MEDS: SODIUM CHLORIDE 0.9% 1000ML 1,000 ML IV SCH (08:54)
[2020-04-15] MEDS: CELECOXIB 100 MG CAP PO SCH (08:54)
[2020-04-15] MEDS: ASPIRIN 325 MG TAB PO SCH (08:54)
--- NOTE | 2020-04-15 09:07 | NUR ---
Catheter removed per MD order. Once patient voids, she may discharge home. Awaiting her need to void.
[2020-04-15 11:34] VITALS: BP 106/64
--- NOTE | 2020-04-15 13:53 | NUR ---
Patient received discharge order from Dr. Calderon. Patient given discharge instructions and discharge paperwork. Patient was told by Dr. Calderon that he sent in her prescriptions for pain medications to [facility]. Patient verbalized understanding. Patient was assisted with getting clothes and belongings together. Patient awaiting ride. Patient will also be leaving with DME (bedside commode and rolling walker). Addendum: 04/15/20 at 1522 by Lata Willis RN Patient IV removed at 1330 and covered with a clean, dry dressing. Patient wheeled to car via wheelchair at 1515. No issues to complaints.
== END 2020-04-15 15:17 | disposition home health service (06) ==
LOC: OR 09:58 → PACU V 12:19 → MED/SURG 13:29
PROVIDERS: ADMIT Specialist; ATTEND Specialist
DX: M16.11 Unilateral primary osteoarthritis, right hip (principal); I10 Essential (primary) hypertension; Z11.59 Encounter for screening for other viral diseases; D64.9 Anemia, unspecified; R33.9 Retention of urine, unspecified; Z01.812 Encounter for preprocedural laboratory examination
CPT/HCPCS: 27130; 36415 ×2; 72170; 81025; 85014; 85018; 85025; 86850; 86900; 86920; 93005; 96361; 97110; 97116 ×2; 97161; 97530; C1713 ×2; C1734; C1776; G0378 ×2; J0171; J0690 ×2; J1100; J1885; J2795; J3370; J7030 ×2; J7040; U0002